=== PATIENT | male | born 1980 | race Caucasian/White ===

== ENCOUNTER 2019-11-04 10:07 | Emergency (ER) | payer SELFPAY ==
[~2019-11-04] VITALS: Ht 182.8 cm; Wt 97.5 kg
[2019-11-04 10:38] LABS: BASOPHILS % (AUTO) 0 % (0-10); EOSINOPHILS # (AUTO) 0.2 10^3/uL (0.0-0.3); EOSINOPHILS % (AUTO) 1 % (0-10); HEMATOCRIT 46 % (40-54); LYMPHOCYTES # (AUTO) 2.6 X 10^3 (1.0-4.0); LYMPHOCYTES % (AUTO) 21 % (12-44); MEAN CORPUSCULAR HEMOGLOBIN 30 PG (25-34); MEAN CORPUSCULAR HGB CONC 35 G/DL (32-36); MEAN CORPUSCULAR VOLUME 85 FL (80-99); MONOCYTES # (AUTO) 0.6 X 10^3 (0.0-1.0); MONOCYTES % (AUTO) 5 % (0-12); NEUTROPHILS % (AUTO) 73 % (42-75); PLATELET COUNT 237 10^3/uL (130-400); RED CELL DISTRIBUTION WIDTH 13.7 % (10.0-14.5); WHITE BLOOD COUNT 12.3 10^3/uL (4.3-11.0)
[2019-11-04] MEDS ORDERED: LACTATED RINGERS 1,000 ML IV ONE ×2 (10:41→11:59)
[2019-11-04] MEDS ORDERED: KETOROLAC 30 MG/ML VIAL IVP STA (10:41)
[2019-11-04] MEDS ORDERED: ONDANSETRON 4 MG/2 ML (SDV) Z0FRAN IVP ONE (10:45)
[2019-11-04 10:51] LABS: ALBUMIN 4.3 GM/DL (3.2-4.5); CHLORIDE 109 MMOL/L (98-107); POTASSIUM 3.7 MMOL/L (3.6-5.0); SODIUM 139 MMOL/L (135-145)
[2019-11-04 10:52] LABS: AMYLASE 54 U/L (25-125); CALCIUM 9.3 MG/DL (8.5-10.1)
[2019-11-04 10:53] LABS: GLUCOSE 100 MG/DL (70-105); TOTAL PROTEIN 6.9 GM/DL (6.4-8.2)
[2019-11-04 10:54] LABS: CARBON DIOXIDE 21 MMOL/L (21-32)
[2019-11-04 10:55] LABS: BILIRUBIN,TOTAL 0.5 MG/DL (0.1-1.0)
[2019-11-04 10:57] LABS: ALKALINE PHOSPHATASE 130 U/L (40-136); CREATININE SERUM 1.12 MG/DL (0.60-1.30); GFR ESTIMATED > 60
[2019-11-04 10:58] LABS: BUN/CREATININE RATIO 12
[2019-11-04 11:00] LABS: ALANINE AMINOTRANSFERASE 25 U/L (0-55); LIPASE 31 U/L (8-78)
--- NOTE | 2019-11-04 11:51 | Diagnostic Imaging Report ---
PROCEDURE: CT urinary tract, rule out kidney stone. TECHNIQUE: Multiple contiguous axial images were obtained through the abdomen and pelvis without the use of intravenous contrast. Auto Exposure Controls were utilized during the CT exam to meet ALARA standards for radiation dose reduction. INDICATION: Left anterior abdominal pain radiating to the back. Nausea. History of kidney stones. COMPARISON: None FINDINGS: The lung bases demonstrate dependent atelectasis. The heart is normal in size. The liver demonstrates no focal lesions. The spleen appears normal. The pancreas is normal. The adrenal glands appear normal. The right kidney demonstrates no hydronephrosis. No obstructing calculi are seen. The left kidney demonstrates no hydronephrosis. No obstructing calculi are seen. Small splenule is noted. The bowel loops are nondistended without obstruction. The appendix appears normal. There is no free fluid or free air. No significant adenopathy is seen. No acute osseous abnormality is seen. IMPRESSION: 1. No obstructing calculi or hydronephrosis is seen. No acute abdominal abnormality is identified. Dictated by: Dictated on workstation # [id number]
--- NOTE | 2019-11-04 11:55 | Diagnostic Imaging Report ---
HISTORY: Left-sided abdominal pain and flank pain. COMPARISON: None TECHNIQUE: Frontal view the chest. Supine and upright frontal views of the abdomen FINDINGS: Lung volumes are normal. No focal consolidation is seen. There is no pleural effusion or pneumothorax. The cardiac silhouette is normal in size and contour. Cholecystectomy clips are noted. No distended loops of bowel are seen. No large collection of free air is seen. Multiple phleboliths are seen in the pelvis. IMPRESSION: 1. No acute pulmonary abnormality seen. 2. No bowel obstruction or free air. Multiple phleboliths are seen in the pelvis. Dictated by: Dictated on workstation # [id number]
--- NOTE | 2019-11-04 11:57 | ED Abdominal Pain ---
General Chief Complaint: Abdominal/GI Problems Stated Complaint: POSS KIDNEY STONES Nursing Triage Note: PT AMB TO RM 8 WITH COMPLAINT OF LUQ PAIN THAT RADIATES TO HIS BACK. HAS BEEN HAVING PAIN FOR TWO WEEKS BUT WORSENED OVER THE WEEKEND. FEELS LIKE A KIDNEY STONE. HAS HAD KIDNEY STONE BLASTED IN THE PAST. 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 DRANK ALCOHOL ON Monday11/02/19 TOOK IBUPROFEN AT 1999 LAST NIGHT, OTHERWISE HAS NOT TAKEN ANYTHING FOR PAIN Allergies and Home Medications Allergies Coded Allergies: No Known Drug Allergies (Unverified , 11/04/19) Home Medications Dicyclomine HCl 20 Mg Tablet, 20 MG PO Q6H Prescribed by: ERICA ECKERT on 11/04/19 1337 Hyoscyamine Sulfate 0.125 Mg Tab.subl, 0.25 MG SL Q4H Prescribed by: ERICA ECKERT on 11/04/19 1337 Ondansetron 8 Mg Tab.rapdis, 8 MG PO Q4H PRN for NAUSEA/VOMITING Prescribed by: ERICA ECKERT on 11/04/19 1337 Patient Home Medication List Home Medication List Reviewed: Yes Review of Systems Review of Systems Constitutional: no symptoms reported; No chills, No diaphoresis, No dizziness, No fever EENTM: No Symptoms Reported Respiratory: No Symptoms Reported; Denies Cough, Denies Shortness of Air Cardiovascular: No Symptoms Reported; Denies Edema, Denies Lightheadedness, Denies Palpitations Gastrointestinal: See HPI, Abdominal Pain; Denies Constipated, Denies Diarrhea; Nausea; Denies Vomiting Genitourinary: No Symptoms Reported Musculoskeletal: see HPI, back pain Skin: no symptoms reported Psychiatric/Neurological: No Symptoms Reported Endocrine: No Symptoms Reported Hematologic/Lymphatic: No Symptoms Reported Past Tkenznc-Llngra-Gxtwzp Hx Past Med/Social Hx: Reviewed and Corrections made Patient Social History Alcohol Use: Occasionally Uses Recreational Drug Use: No Smoking Status: Current Everyday Smoker (SMOKES CIGARS DAILY) Type Used: Cigars Recent Foreign Travel: No Contact w/Someone Who Travel: No Recent Infectious Disease Expo: No Immunizations Up To Date Tetanus Booster (TDap): Unknown PED Vaccines UTD: Yes Past Medical History Surgeries: Yes (ROTATOR CUFF SURGERY X 3; LITHOTRIPSY) Gallbladder, Orthopedic, Renal Cardiac: No Neurological: No Genitourinary: Yes Kidney Stones Gastrointestinal: No Musculoskeletal: Yes (ROTATOR CUFF SURGERY X 3) Endocrine: No HEENT: No Cancer: No Psychosocial: No Integumentary: No Blood Disorders: No Physical Exam Vital Signs Vital Signs - First Documented 11/04/19 10:21 Temp 36.6 Pulse 82 Resp 17 B/P (MAP) 126/88 (101) Pulse Ox 98 O2 Delivery Room Air Capillary Refill : Less Than 3 Seconds Height/Weight/BMI Height: '" Weight: lbs. oz. kg; 29.00 BMI Method: General Appearance: WD/WN, no apparent distress, other (LAYING OUTSTRETCHED, TEXTING ON PHONE. WALKS UPRIGHT AND MOVES WITHOUT DIFFICULTY. DOES NOT APPEAR TO BE IN ANY DISCOMFORT OR DISTRESS. ) Respiratory: normal breath sounds, no respiratory distress, no accessory muscle use Cardiovascular: regular rate, rhythm, no murmur Gastrointestinal: normal bowel sounds, soft, no organomegaly, no pulsatile mass, tenderness (DIFFUSE LEFT SIDED ABDOMINAL TENDERNESS, WITH MOST TENDERNESS BEING IN LEFT UPPER QUADRANT. 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, no motor/sensory deficits, alert, normal mood/affect, oriented x 3 Skin: normal color, warm/dry; No rash Progress/Results/Core Measures Results/Orders Lab Results Laboratory Tests Test 11/04/19 10:30 11/04/19 12:59 Range/Units White Blood Count 12.3 H 4.3-11.0 10^3/uL Red Blood Count 5.39 4.35-5.85 10^6/uL Hemoglobin 16.0 13.3-17.7 G/DL Hematocrit 46 40-54 % Mean Corpuscular Volume 85 80-99 FL Mean Corpuscular Hemoglobin 30 25-34 PG Mean Corpuscular Hemoglobin Concent 35 32-36 G/DL Red Cell Distribution Width 13.7 10.0-14.5 % Platelet Count 237 130-400 10^3/uL Mean Platelet Volume 10.0 7.4-10.4 FL Neutrophils (%) (Auto) 73 42-75 % Lymphocytes (%) (Auto) 21 12-44 % Monocytes (%) (Auto) 5 0-12 % Eosinophils (%) (Auto) 1 0-10 % Basophils (%) (Auto) 0 0-10 % Neutrophils # (Auto) 9.0 H 1.8-7.8 X 10^3 Lymphocytes # (Auto) 2.6 1.0-4.0 X 10^3 Monocytes # (Auto) 0.6 0.0-1.0 X 10^3 Eosinophils # (Auto) 0.2 0.0-0.3 10^3/uL Basophils # (Auto) 0.0 0.0-0.1 10^3/uL Sodium Level 139 135-145 MMOL/L Potassium Level 3.7 3.6-5.0 MMOL/L Chloride Level 109 H 98-107 MMOL/L Carbon Dioxide Level 21 21-32 MMOL/L Anion Gap 9 5-14 MMOL/L Blood Urea Nitrogen 13 7-18 MG/DL Creatinine 1.12 0.60-1.30 MG/DL Estimat Glomerular Filtration Rate > 60 BUN/Creatinine Ratio 12 Glucose Level 100 70-105 MG/DL Calcium Level 9.3 8.5-10.1 MG/DL Corrected Calcium 9.1 8.5-10.1 MG/DL Total Bilirubin 0.5 0.1-1.0 MG/DL Aspartate Amino Transf (AST/SGOT) 20 5-34 U/L Alanine Aminotransferase (ALT/SGPT) 25 0-55 U/L Alkaline Phosphatase 130 40-136 U/L Total Protein 6.9 6.4-8.2 GM/DL Albumin 4.3 3.2-4.5 GM/DL Amylase Level 54 25-125 U/L Lipase 31 8-78 U/L Urine Color YELLOW Urine Clarity CLEAR Urine pH 5.5 5-9 Urine Specific [place] >=1.030 1.016-1.022 Urine Protein TRACE H NEGATIVE Urine Glucose (UA) NEGATIVE NEGATIVE Urine Ketones TRACE H NEGATIVE Urine Nitrite NEGATIVE NEGATIVE Urine Bilirubin 2+ H NEGATIVE Urine Urobilinogen 0.2 < = 1.0 MG/DL Urine Leukocyte Esterase NEGATIVE NEGATIVE Urine RBC (Auto) NEGATIVE NEGATIVE Urine RBC NONE /HPF Urine WBC NONE /HPF Urine Crystals NONE /LPF Urine Bacteria TRACE /HPF Urine Casts NONE /LPF Urine Mucus MODERATE H /LPF Urine Culture Indicated NO Urine Opiates Screen NEGATIVE NEGATIVE Urine Oxycodone Screen NEGATIVE NEGATIVE Urine Methadone Screen NEGATIVE NEGATIVE Urine Propoxyphene Screen NEGATIVE NEGATIVE Urine Barbiturates Screen NEGATIVE NEGATIVE Ur Tricyclic Antidepressants Screen NEGATIVE NEGATIVE Urine Phencyclidine Screen NEGATIVE NEGATIVE Urine Amphetamines Screen NEGATIVE NEGATIVE Urine Methamphetamines Screen NEGATIVE NEGATIVE Urine Benzodiazepines Screen NEGATIVE NEGATIVE Urine Cocaine Screen NEGATIVE NEGATIVE Urine Cannabinoids Screen NEGATIVE NEGATIVE My Orders Orders - ERICA ECKERT DO Ct Abd/Pelvis Wo(Kidney Stone) (11/04/19 10:22) Amylase (11/04/19 10:22) Cbc With Automated Diff (11/04/19 10:22) Comprehensive Metabolic Panel (11/04/19 10:22) Lipase (11/04/19 10:22) Urinalysis (11/04/19 10:22) Acute Abd Series (11/04/19 10:22) Ed Iv/Invasive Line Start (11/04/19 10:22) Drug Screen Stat (Urine) (11/04/19 10:22) Ed Iv/Invasive Line Start (11/04/19 10:41) Lactated Ringers (Lr 1000 Ml Iv Solution (11/04/19 10:41) Ondansetron Injection (Zofran Injectio (11/04/19 10:45) Ketorolac Injection (Toradol Injection) (11/04/19 10:41) Ed Iv/Invasive Line Start (11/04/19 11:59) Lactated Ringers (Lr 1000 Ml Iv Solution (11/04/19 11:59) Ed Iv/Invasive Line Start (11/04/19 12:55) Ns Iv 1000 Ml (Sodium Chloride 0.9%) (11/04/19 12:55) Pantoprazole Tablet (Protonix Tablet) (11/04/19 13:45) Hyoscyamine Sl Tablet (Levsin Sl Tablet) (11/04/19 13:45) Medications Given in ED Current Medications Medications Dose Ordered Sig/[place] Route Start Time Stop Time Status Last Admin Dose Admin Hyoscyamine Sulfate 0.25 mg ONCE ONCE PO 11/04/19 13:45 11/04/19 13:46 DC 11/04/19 14:02 0.25 MG Lactated Ringer's 1,000 ml @ 0 mls/hr Q0M ONCE IV 11/04/19 10:41 11/04/19 10:42 DC 11/04/19 10:52 0 MLS/HR Lactated Ringer's 1,000 ml @ 0 mls/hr Q0M ONCE IV 11/04/19 11:59 11/04/19 12:00 DC 11/04/19 12:20 0 MLS/HR Ondansetron HCl 4 mg ONCE ONCE IVP 11/04/19 10:45 11/04/19 10:46 DC 11/04/19 10:52 4 MG Pantoprazole Sodium 40 mg ONCE ONCE PO 11/04/19 13:45 11/04/19 13:46 DC 11/04/19 14:02 40 MG Vital Signs/I&O 11/04/19 11/04/19 10:21 14:04 Temp 36.6 36.6 Pulse 82 78 Resp 17 15 B/P (MAP) 126/88 (101) 115/84 (101) Pulse Ox 98 98 O2 Delivery Room Air Room Air Blood Pressure Mean: 101 Progress Progress Note : Progress Note GIVEN TORADOL--STATES NO SIGNIFICANT IMPROVEMENT. Diagnostic Imaging Comments CT ABDOMEN/PELVIS-PER RADIOLOGIST REPORT AT 1157 IMPRESSION: 1. No obstructing calculi or hydronephrosis is seen. No acute abdominal abnormality is identified. ABDOMEN XRAYS--PER RADIOLOGIST REPORT AT 1158 MPRESSION: 1. No acute pulmonary abnormality seen. 2. No bowel obstruction or free air. Multiple phleboliths are seen in the pelvis. Reviewed: Reviewed by Me Departure Impression Primary Impression: Left sided abdominal pain Disposition: HOME, SELF-CARE Condition: Stable Departure-Patient Inst. Referrals: HERNESTO RHODES DO NO,LOCAL PHYSICIAN (PCP) Primary Care Physician Patient Instructions: Acute Abdomen (Belly Pain), Adult (DC) Add. Discharge Instructions: CLEAR LIQUIDS--WATER, BROTH, JELLO, GATORADE BRATS DIET--BANANAS, RICE, APPLESAUCE , TOAST, SALTINES FOLLOW UP WITH DR. RHODES ,GENERAL SURGEON, IN 2-3 DAYS IF SYMPTOMS PERSIST All discharge instructions reviewed with patient and/or family. Voiced understanding. Scripts Ondansetron (Ondansetron Odt) 8 Mg Tab.rapdis 8 MG PO Q4H PRN for NAUSEA/VOMITING, #10 TAB Prov: ERICA ECKERT DO 11/04/19 Hyoscyamine Sulfate (Levsin-Sl) 0.125 Mg Tab.subl 0.25 MG SL Q4H, #10 TAB Prov: ERICA ECKERT DO 11/04/19 Dicyclomine HCl (Dicyclomine HCl) 20 Mg Tablet 20 MG PO Q6H for Abdominal Pain, #20 TAB Prov: ERICA ECEKRT DO 11/04/19 ERICA ECKERT DO Nov 04, 2019 11:57
[2019-11-04] MEDS ORDERED: NS IV 1000 ML 1,000 ML IV SCH (12:55)
[2019-11-04 13:10] LABS: CLARITY,URINE CLEAR; COLOR,URINE YELLOW; GLUCOSE, URINE (UA) NEGATIVE (NEGATIVE); KETONES,URINE TRACE (NEGATIVE); LEUKOCYTE ESTERASE ,URINE NEGATIVE (NEGATIVE); NITRITE,URINE NEGATIVE (NEGATIVE); PH,URINE 5.5 (5-9); PROTEIN,URINE TRACE (NEGATIVE)
[2019-11-04 13:22] LABS: BACTERIA,URINE TRACE /HPF
[2019-11-04 13:27] LABS: AMPHETAMINE SCREEN, URINE NEGATIVE (NEGATIVE); BARBITURATE SCREEN URINE NEGATIVE (NEGATIVE); BENZODIAZEPINES SCREEN URINE NEGATIVE (NEGATIVE); CANNABINOID SCREEN, URINE NEGATIVE (NEGATIVE); COCAINE SCREEN URINE NEGATIVE (NEGATIVE); METHADONE STAT NEGATIVE (NEGATIVE); METHAMPHETAMINE SCREEN URINE S NEGATIVE (NEGATIVE); OPIATE SCREEN URINE NEGATIVE (NEGATIVE); OXYCODONE STAT NEGATIVE (NEGATIVE); PROPOXYPHENE STAT NEGATIVE (NEGATIVE); TRICYCLIC ANTIDEPRESSANTS SCRE NEGATIVE (NEGATIVE)
[2019-11-04] MEDS ORDERED: HYOS0.1283 SL (13:37)
[2019-11-04] MEDS ORDERED: ONDA8TAB13 PO (13:37)
[2019-11-04] MEDS ORDERED: DICY20TA10 PO (13:37)
[2019-11-04 13:41] LABS: BILIRUBIN,URINE 2+ (NEGATIVE)
[2019-11-04] MEDS ORDERED: PANTOPRAZOLE 40 MG (PROTONIX) TAB PO ONE (13:45)
[2019-11-04] MEDS ORDERED: HYOSCYAMINE 0.125 MG (LEVSIN) TAB PO ONE (13:45)
[2019-11-04 14:04] VITALS: BP 115/84
== END 2019-11-04 14:04 | disposition home or self-care (01) ==
LOC: EDUNIT# 10:07 → ER 10:08
DX: R10.12 Left upper quadrant pain (principal); Z87.442 Personal history of urinary calculi; F17.290 Nicotine dependence, other tobacco product, uncomplicated
CPT/HCPCS: 36415; 74022; 74176; 80053; 80306; 81000; 82150; 83690; 85025